=== PATIENT | male | born 1940 | race Caucasian/White ===

== ENCOUNTER → 2025-01-18 09:55 | Outpatient (REF) | payer MEDICARE, SELFPAY | LOC: HWRCS 09:55 | PROVIDERS: ATTENDING PHYSICIAN Student in an Organized Health Care Education/Training Program; FAMILY PHYSICIAN Internal Medicine; REFERRING PHYSICIAN Thoracic Surgery (Cardiothoracic Vascular Surgery) | DX: Z98.890 Other specified postprocedural states (principal) | CPT/HCPCS: 93306 ==